=== PATIENT | male | born 1945 | race African-American/Black ===

== ENCOUNTER 2019-03-06 18:06 | Emergency (ER) | payer MEDICARE, MEDICAID ==
[~2019-03-06] VITALS: Ht 177.8 cm; Wt 82.0 kg
[2019-03-06] MEDS ORDERED: LIDOCAINE 1%/EPI 1:100,000 10 ML VIAL IJ ONE (21:15)
[2019-03-06] MEDS ORDERED: BACITRACIN ZINC OINT UDPKT TOP ONE (21:15)
[2019-03-06] MEDS ORDERED: LIDOCAINE HCL/EPINEPHRINE 1%-EPI 1:100,000 20 ML VIAL INFIL NR (21:15)
[2019-03-06 21:50] LABS: BASOPHILS % 0.4 % (0.0-2.0); EOSINOPHILS % 1.6 % (0.0-5.0); HEMATOCRIT. 33.5 % (42.0-52.0); HEMOGLOBIN. 11.4 g/dL (14.0-18.0); LYMPHOCYTES % 18.8 % (20.0-50.0); MEAN CORPUSCULAR HEMOGLOBIN 30.4 pg (28.0-32.0); MEAN CORPUSCULAR VOLUME 89.5 fL (80.0-94.0); MEAN PLATELET VOLUME 6.7 fl (7.4-10.4); MONOCYTES % 7.6 % (2.0-8.0); NEUTROPHILS % 71.6 % (40.0-76.0); PLATELET 156 x1000/uL (130-400); RED BLOOD CELL COUNT 3.75 mill/uL (4.7-6.1); RED CELL DISTRIBUTION WIDTH 15.6 % (11.6-14.6)
[2019-03-06 21:53] LABS: INR 1.1; PARTIAL THROMBOPLASTIN TIME 26.1 sec (23.4-31.0); PROTHROMBIN TIME 10.9 sec (9.6-11.0)
[2019-03-06 22:59] VITALS: BP 134/79
== END 2019-03-06 23:00 | disposition home or self-care (01) ==
LOC: ER 18:06
DX: L02.411 Cutaneous abscess of right axilla (principal); R58 Hemorrhage, not elsewhere classified
CPT/HCPCS: 36415; 80048; 85025; 85610; 85730; 99283; J3490

== ENCOUNTER 2019-08-05 17:57 | Emergency (ER) | payer MEDICARE, MEDICAID ==
[~2019-08-05] VITALS: Ht 170.2 cm; Wt 84.0 kg
[2019-08-05] MEDS ORDERED: ACETAMINOPHEN 325MG TABLET PO ONE (18:45)
[2019-08-05 18:51] LABS: BASOPHILS % 0.6 % (0.0-2.0); EOSINOPHILS % 2.5 % (0.0-5.0); HEMATOCRIT. 33.5 % (42.0-52.0); HEMOGLOBIN. 11.2 g/dL (14.0-18.0); LYMPHOCYTES % 20.5 % (20.0-50.0); MEAN CORPUSCULAR HEMOGLOBIN 29.9 pg (28.0-32.0); MEAN CORPUSCULAR VOLUME 89.1 fL (80.0-94.0); MEAN PLATELET VOLUME 6.5 fl (7.4-10.4); MONOCYTES % 7.6 % (2.0-8.0); NEUTROPHILS % 68.8 % (40.0-76.0); PLATELET 176 x1000/uL (130-400); RED BLOOD CELL COUNT 3.76 mill/uL (4.7-6.1); RED CELL DISTRIBUTION WIDTH 15.9 % (11.6-14.6)
[2019-08-05 18:58] LABS: CHLORIDE 108 mEq/L (98-107)
[2019-08-05 21:30] VITALS: BP 124/61
== END 2019-08-05 21:30 | disposition home or self-care (01) ==
LOC: ER 17:57
DX: R20.2 Paresthesia of skin (principal); I10 Essential (primary) hypertension; Z86.73 Personal history of transient ischemic attack (TIA), and cerebral infarction without residual deficits; Z98.890 Other specified postprocedural states; Z88.0 Allergy status to penicillin; Z88.1 Allergy status to other antibiotic agents; Z88.6 Allergy status to analgesic agent
CPT/HCPCS: 36415; 93005; 99284

== ENCOUNTER 2019-08-06 13:23 | Inpatient (IN) | payer MEDICARE, MEDICAID ==
[~2019-08-06] VITALS: Ht 177.8 cm; Wt 84.6 kg
[2019-08-06] MEDS ORDERED: SODIUM CHLORIDE 0.9% 1,000 ML IV ONE (14:57)
[2019-08-06 16:12] LABS: HEMATOCRIT. 34.6 % (42.0-52.0); HEMOGLOBIN. 11.5 g/dL (14.0-18.0); MEAN CORPUSCULAR HEMOGLOBIN 29.8 pg (28.0-32.0); MEAN CORPUSCULAR VOLUME 89.9 fL (80.0-94.0); MEAN PLATELET VOLUME 6.9 fl (7.4-10.4); PLATELET 174 x1000/uL (130-400); RED BLOOD CELL COUNT 3.85 mill/uL (4.7-6.1); RED CELL DISTRIBUTION WIDTH 15.7 % (11.6-14.6)
[2019-08-06 16:15] LABS: CHLORIDE 108 mEq/L (98-107)
[2019-08-06 16:21] LABS: INR 1.1; PROTHROMBIN TIME 10.8 sec (9.6-11.0)
[2019-08-06 16:33] LABS: PLATELET ESTIMATE NORMAL
[2019-08-06] MEDS ORDERED: ONDANSETRON HCL 4MG/2ML INJ IV PRN (17:45)
[2019-08-06] MEDS ORDERED: NA PHOS,M-B/NA PHOS,DI-BA ENEMA 118ML PR PRN (17:45)
[2019-08-06] MEDS ORDERED: MAGNESIUM/ALUMINUM HYDROXIDE/SIMETHICONE 30ML UDC PO PRN (17:45)
[2019-08-06] MEDS ORDERED: CLONIDINE 0.1MG TABLET PO PRN (17:45)
[2019-08-06] MEDS ORDERED: MORPHINE SULFATE 2 MG/ML CPJ (NOT FOR IM USE) IV PRN (17:45)
[2019-08-06] MEDS ORDERED: ACETAMINOPHEN 325MG TABLET PO PRN (17:45)
[2019-08-06] MEDS ORDERED: DEXTROSE 50% WATER 50ML SYRINGE IV PRN (17:45)
[2019-08-06] MEDS ORDERED: HYDRALAZINE 20MG/ML VIAL IV PRN (17:45)
[2019-08-06] MEDS ORDERED: GUAIFENESIN 200MG/10ML SUGAR FREE UDC PO PRN (17:45)
[2019-08-06] MEDS ORDERED: HYDROCODONE/ACETAMINOPHEN 5/325MG TABLET PO PRN (17:45)
[2019-08-06] MEDS ORDERED: IPRATROPIUM/ALBUTEROL 0.5-3(2.5)MG/3ML NEB HHN PRN (17:45)
[2019-08-06] MEDS ORDERED: DOCUSATE SODIUM 100MG CAPSULE PO PRN (17:45)
[2019-08-06] MEDS ORDERED: LORAZEPAM 2MG/ML CPJ IV PRN (17:45)
[2019-08-06] MEDS ORDERED: DIPHENHYDRAMINE 50MG/ML VIAL IV PRN (17:45)
[2019-08-06 19:36] LABS: CLARITY URINE CLEAR (CLEAR); COLOR URINE YELLOW (YELLOW); KETONES URINE NEGATIVE (NEGATIVE); LEUKOCYTE ESTERASE URINE NEGATIVE (NEGATIVE); NITRITE URINE NEGATIVE (NEGATIVE); OCCULT BLOOD URINE NEGATIVE (NEGATIVE); PROTEIN URINE NEGATIVE (NEGATIVE); SPECIFIC GRAVITY URINE 1.019 (1.005-1.030); UROBILINOGEN URINE 0.2 E.U./dL (0.2-1.0)
[2019-08-06 21:53] VITALS: BP 148/53
[2019-08-06] MEDS: SODIUM CHLORIDE 0.9% INJ 3ML FLUSH IVF SCH (22:53)
[2019-08-06] MEDS: SODIUM CHLORIDE 0.45% 1,000 ML IV SCH (22:55)
[2019-08-07] VITALS (10 sets, daily range): BP systolic 109–150; BP diastolic 51–75
[2019-08-07] MEDS: SODIUM CHLORIDE 0.9% INJ 3ML FLUSH IVF SCH ×3 (06:29→22:00)
[2019-08-07 07:07] LABS: CHLORIDE 111 mEq/L (98-107)
[2019-08-07 07:14] LABS: BASOPHILS % 0.8 % (0.0-2.0); EOSINOPHILS % 2.7 % (0.0-5.0); HEMATOCRIT. 29.7 % (42.0-52.0); HEMOGLOBIN. 10.1 g/dL (14.0-18.0); LYMPHOCYTES % 28.8 % (20.0-50.0); MEAN CORPUSCULAR VOLUME 88.7 fL (80.0-94.0); MEAN PLATELET VOLUME 7.1 fl (7.4-10.4); MONOCYTES % 9.8 % (2.0-8.0); NEUTROPHILS % 57.9 % (40.0-76.0); PLATELET 158 x1000/uL (130-400); RED BLOOD CELL COUNT 3.35 mill/uL (4.7-6.1)
[2019-08-07 07:30] LABS: T4 FREE 0.88 ng/dL (0.76-1.46)
[2019-08-07 07:31] LABS: CREATINE KINASE 496 IU/L (39-308)
[2019-08-07 07:34] LABS: HDL CHOLESTEROL 44 mg/dL (40-59); LDL CHOLESTEROL 111 mg/dL (5-100)
[2019-08-07 07:40] LABS: CREATINE KINASE MB FRACTION 3.4 ng/mL (0.5-3.6)
[2019-08-07] MEDS: ENOXAPARIN 40MG/0.4ML SYR SUBCUT SCH (09:28)
[2019-08-07] MEDS: SODIUM CHLORIDE 0.45% 1,000 ML IV SCH (13:24)
[2019-08-07] MEDS: CLOPIDOGREL 75MG TABLET PO SCH (15:05)
[2019-08-07 16:29] LABS: CREATINE KINASE 585 IU/L (39-308)
[2019-08-07 16:30] LABS: CREATINE KINASE MB FRACTION 4.2 ng/mL (0.5-3.6)
[2019-08-07] MEDS: ATORVASTATIN CALCIUM 40MG TABLET PO SCH ×2 (20:11→20:35)
[2019-08-08] VITALS (13 sets, daily range): BP systolic 121–160; BP diastolic 55–88
[2019-08-08] MEDS: SODIUM CHLORIDE 0.45% 1,000 ML IV SCH ×2 (04:46→23:49)
[2019-08-08] MEDS: SODIUM CHLORIDE 0.9% INJ 3ML FLUSH IVF SCH ×3 (05:30→21:35)
[2019-08-08] MEDS: ENOXAPARIN 40MG/0.4ML SYR SUBCUT SCH (08:49)
[2019-08-08] MEDS: CLOPIDOGREL 75MG TABLET PO SCH (08:49)
[2019-08-09] VITALS (10 sets, daily range): BP systolic 116–149; BP diastolic 55–79
[2019-08-09] MEDS: SODIUM CHLORIDE 0.9% INJ 3ML FLUSH IVF SCH ×2 (06:15→12:08)
[2019-08-09] MEDS: CLOPIDOGREL 75MG TABLET PO SCH (09:47)
[2019-08-09] MEDS: ENOXAPARIN 40MG/0.4ML SYR SUBCUT SCH (09:47)
[2019-08-09 11:40] LABS: CREATINE KINASE MB FRACTION 2.5 ng/mL (0.5-3.6)
== END 2019-08-09 17:32 | disposition home health service (06) | DRG 45 ==
LOC: ER 13:23 → 7WST 17:38 → EDBEDREQ 17:46 → ENRESERV 21:33 → 5EST 08-07 13:10
PROVIDERS: ADMIT Internal Medicine; ATTEND Internal Medicine
PROC: 4A00X4Z Measurement of Central Nervous Electrical Activity, External Approach (ICD-10-PCS; principal; 2019-08-08)
DX: I63.10 Cerebral infarction due to embolism of unspecified precerebral artery (principal); N17.9 Acute kidney failure, unspecified; M62.82 Rhabdomyolysis; G90.8 Other disorders of autonomic nervous system; E86.0 Dehydration; D64.9 Anemia, unspecified; N18.9 Chronic kidney disease, unspecified; E78.5 Hyperlipidemia, unspecified; Z88.1 Allergy status to other antibiotic agents; Z88.9 Allergy status to unspecified drugs, medicaments and biological substances; Z85.9 Personal history of malignant neoplasm, unspecified; Z85.53 Personal history of malignant neoplasm of renal pelvis; I25.10 Atherosclerotic heart disease of native coronary artery without angina pectoris; I12.9 Hypertensive chronic kidney disease with stage 1 through stage 4 chronic kidney disease, or unspecified chronic kidney disease; Z90.5 Acquired absence of kidney; Z88.0 Allergy status to penicillin; Z82.49 Family history of ischemic heart disease and other diseases of the circulatory system
CPT/HCPCS: 36415; 70551; 71045; 80061; 81003; 82550; 82553; 83605; 84439; 84443; 84484; 93005; 93306; 93880; 93970; 95816; 96360; 97116; 97162; 97166; 97535; 99285; J1650; J7030

== ENCOUNTER 2019-08-29 07:52 | Emergency (ER) | payer MEDICARE, MEDICAID ==
[~2019-08-29] VITALS: Ht 177.8 cm; Wt 82.0 kg
[2019-08-29] MEDS ORDERED: ACETAMINOPHEN 650MG/20.3ML UDC PO ONE (08:45)
[2019-08-29 09:19] LABS: BASOPHILS % 0.6 % (0.0-2.0); EOSINOPHILS % 2.2 % (0.0-5.0); HEMATOCRIT. 32.8 % (42.0-52.0); HEMOGLOBIN. 11.2 g/dL (14.0-18.0); LYMPHOCYTES % 20.9 % (20.0-50.0); MEAN CORPUSCULAR HEMOGLOBIN 30.3 pg (28.0-32.0); MEAN PLATELET VOLUME 6.6 fl (7.4-10.4); MONOCYTES % 7.3 % (2.0-8.0); PLATELET 181 x1000/uL (130-400); RED BLOOD CELL COUNT 3.68 mill/uL (4.7-6.1); RED CELL DISTRIBUTION WIDTH 15.6 % (11.6-14.6)
[2019-08-29 09:25] LABS: INR 1.1; PROTHROMBIN TIME 11.2 sec (9.6-11.0)
[2019-08-29 09:26] LABS: CHLORIDE 106 mEq/L (98-107)
[2019-08-29 10:07] LABS: CLARITY URINE CLEAR (CLEAR); COLOR URINE YELLOW (YELLOW); KETONES URINE NEGATIVE (NEGATIVE); LEUKOCYTE ESTERASE URINE TRACE (NEGATIVE); NITRITE URINE NEGATIVE (NEGATIVE); OCCULT BLOOD URINE NEGATIVE (NEGATIVE); PH URINE 6.5 (4.5-8.0); PROTEIN URINE NEGATIVE (NEGATIVE); SPECIFIC GRAVITY URINE 1.014 (1.005-1.030)
[2019-08-29 11:27] VITALS: BP 136/68
== END 2019-08-29 11:58 | disposition home or self-care (01) ==
LOC: ER 07:52
DX: R51 Headache (principal); I10 Essential (primary) hypertension; Z86.73 Personal history of transient ischemic attack (TIA), and cerebral infarction without residual deficits; Z88.0 Allergy status to penicillin; Z88.1 Allergy status to other antibiotic agents; Z88.6 Allergy status to analgesic agent
CPT/HCPCS: 36415; 81003; 93005; 99284

== ENCOUNTER 2019-09-20 10:28 | Emergency (ER) | payer MEDICARE, MEDICAID ==
[~2019-09-20] VITALS: Ht 177.8 cm; Wt 82.0 kg
[2019-09-20] MEDS ORDERED: ACETAMINOPHEN 325MG TABLET PO ONE (11:00)
[2019-09-20 12:51] VITALS: BP 144/72
== END 2019-09-20 13:18 | disposition home or self-care (01) ==
LOC: ER 10:58
DX: S01.112A Laceration without foreign body of left eyelid and periocular area, initial encounter (principal); M25.552 Pain in left hip; M25.562 Pain in left knee; R03.0 Elevated blood-pressure reading, without diagnosis of hypertension; V43.52XA Car driver injured in collision with other type car in traffic accident, initial encounter; Y93.89 Activity, other specified; Y92.410 Unspecified street and highway as the place of occurrence of the external cause
CPT/HCPCS: 73502; 73560; 99284

== ENCOUNTER 2021-08-06 10:47 | Emergency (ER) | payer MEDICARE, MEDICAID ==
[~2021-08-06] VITALS: Ht 177.8 cm; Wt 84.0 kg
[~2021-08-06 10:47] MED LIST: DOXA2TAB PO; HYDR12.54 PO; LOSA100T3 PO
[2021-08-06 12:17] VITALS: BP 143/78
[2021-08-06] MEDS ORDERED: ACETAMINOPHEN 325MG TABLET PO STA (14:19)
[2021-08-06] MEDS ORDERED: TOPUD PO (15:59)
== END 2021-08-06 16:15 | disposition home or self-care (01) ==
LOC: ER 10:59
DX: S00.83XA Contusion of other part of head, initial encounter (principal); S81.011A Laceration without foreign body, right knee, initial encounter; R10.9 Unspecified abdominal pain; W01.0XXA Fall on same level from slipping, tripping and stumbling without subsequent striking against object, initial encounter; Y93.89 Activity, other specified; Y92.89 Other specified places as the place of occurrence of the external cause; I10 Essential (primary) hypertension; Z88.1 Allergy status to other antibiotic agents; Z88.6 Allergy status to analgesic agent
CPT/HCPCS: 73562; 99284

== ENCOUNTER 2021-09-15 10:29 | Inpatient (IN) | payer MEDICARE, MEDICAID ==
[~2021-09-15] VITALS: Ht 177.8 cm; Wt 81.6 kg
[~2021-09-15 10:29] MED LIST changes: +TOPUD PO
[2021-09-15 11:24] LABS: BASOPHILS % 0.6 % (0.0-2.0); EOSINOPHILS % 4.2 % (0.0-5.0); HEMATOCRIT. 36.5 % (42.0-52.0); HEMOGLOBIN. 11.9 g/dL (14.0-18.0); LYMPHOCYTES % 20.3 % (20.0-50.0); MEAN CORPUSCULAR HEMOGLOBIN 30.4 pg (28.0-32.0); MEAN CORPUSCULAR VOLUME 93.3 fL (80.0-94.0); MEAN PLATELET VOLUME 6.8 fl (7.4-10.4); MONOCYTES % 12.2 % (2.0-8.0); NEUTROPHILS % 62.7 % (40.0-76.0); PLATELET 176 x1000/uL (130-400); RED BLOOD CELL COUNT 3.91 mill/uL (4.7-6.1); RED CELL DISTRIBUTION WIDTH 16.4 % (11.6-14.6)
[2021-09-15 11:31] LABS: CHLORIDE 107 mEq/L (98-107)
[2021-09-15] MEDS ORDERED: ASPI-986 MT (15:27)
[2021-09-15] MEDS ORDERED: POTA-189 MT (15:27)
[2021-09-15] MEDS ORDERED: FOLI0.8T23 MT (15:27)
[2021-09-15] MEDS ORDERED: LOSA100T3 MT (15:27)
[2021-09-15 16:26] VITALS: BP 155/76
[2021-09-15] MEDS ORDERED: MORPHINE SULFATE 2 MG/ML CPJ (NOT FOR IM USE) IV PRN (17:00)
[2021-09-15] MEDS ORDERED: NALOXONE HCL 0.4MG/ML VIAL IV PRN (17:00)
[2021-09-15] MEDS ORDERED: IPRATROPIUM/ALBUTEROL 0.5-3(2.5)MG/3ML NEB HHN PRN (17:45)
[2021-09-15] MEDS ORDERED: HYDROCODONE/ACETAMINOPHEN 5/325MG TABLET PO PRN (17:45)
[2021-09-15] MEDS ORDERED: CLONIDINE 0.1MG TABLET PO PRN (17:45)
[2021-09-15] MEDS ORDERED: ONDANSETRON HCL 4MG/2ML INJ IV PRN (17:45)
[2021-09-15] MEDS ORDERED: HYDRALAZINE 20MG/ML VIAL IV PRN (17:45)
[2021-09-15] MEDS ORDERED: MAGNESIUM/ALUMINUM HYDROXIDE/SIMETHICONE 30ML UDC PO PRN (17:45)
[2021-09-15] MEDS ORDERED: GUAIFENESIN 200MG/10ML SUGAR FREE UDC PO PRN (17:45)
[2021-09-15] MEDS ORDERED: ACETAMINOPHEN 325MG TABLET PO PRN (17:45)
[2021-09-15] MEDS ORDERED: DIPHENHYDRAMINE 50MG/ML VIAL IV PRN (17:45)
[2021-09-15] MEDS ORDERED: LORAZEPAM 2MG/ML CPJ IV PRN (17:45)
[2021-09-15] MEDS ORDERED: DOCUSATE SODIUM 100MG CAPSULE PO PRN (17:45)
[2021-09-15] MEDS: ENOXAPARIN 40MG/0.4ML SYR SUBCUT SCH (19:01)
[2021-09-15 20:00] VITALS: BP 135/73
[2021-09-15] MEDS: SODIUM CHLORIDE 0.9% INJ 3ML FLUSH IVF SCH (21:16)
[2021-09-15 22:54] LABS: CLARITY URINE CLEAR (CLEAR); COLOR URINE YELLOW (YELLOW); KETONES URINE NEGATIVE (NEGATIVE); LEUKOCYTE ESTERASE URINE TRACE (NEGATIVE); NITRITE URINE NEGATIVE (NEGATIVE); OCCULT BLOOD URINE NEGATIVE (NEGATIVE); PROTEIN URINE NEGATIVE (NEGATIVE); SPECIFIC GRAVITY URINE 1.012 (1.005-1.030)
[2021-09-16] VITALS: BP 127/67
[2021-09-16] LABS: CREATINE KINASE 369 IU/L (39-308)
[2021-09-16 00:05] LABS: CREATINE KINASE MB FRACTION 3.3 ng/mL (0.5-3.6)
[2021-09-16 04:00] VITALS: BP 126/66
[2021-09-16] MEDS: SODIUM CHLORIDE 0.9% INJ 3ML FLUSH IVF SCH ×3 (05:00→21:12)
[2021-09-16 08:00] VITALS: BP 110/63
[2021-09-16 08:41] LABS: BASOPHILS % 0.8 % (0.0-2.0); EOSINOPHILS % 4.6 % (0.0-5.0); HEMATOCRIT. 35.4 % (42.0-52.0); HEMOGLOBIN. 11.7 g/dL (14.0-18.0); LYMPHOCYTES % 23.6 % (20.0-50.0); MEAN CORPUSCULAR HEMOGLOBIN 30.3 pg (28.0-32.0); MEAN CORPUSCULAR VOLUME 91.6 fL (80.0-94.0); MEAN PLATELET VOLUME 7.1 fl (7.4-10.4); PLATELET 175 x1000/uL (130-400); RED BLOOD CELL COUNT 3.86 mill/uL (4.7-6.1); RED CELL DISTRIBUTION WIDTH 15.8 % (11.6-14.6)
[2021-09-16 08:55] LABS: CHLORIDE 108 mEq/L (98-107)
[2021-09-16 09:01] LABS: CREATINE KINASE 375 IU/L (39-308)
[2021-09-16 09:03] LABS: CREATINE KINASE MB FRACTION 3.3 ng/mL (0.5-3.6)
[2021-09-16 11:50] VITALS: BP 113/65
[2021-09-16 16:00] VITALS: BP 128/86
[2021-09-16] MEDS: ENOXAPARIN 40MG/0.4ML SYR SUBCUT SCH (17:30)
[2021-09-16 20:00] VITALS: BP 123/64
[2021-09-17] VITALS: BP 128/62
[2021-09-17 04:00] VITALS: BP 131/62
[2021-09-17] MEDS: SODIUM CHLORIDE 0.9% INJ 3ML FLUSH IVF SCH ×2 (06:09→14:04)
[2021-09-17 07:57] VITALS: BP 145/67
[2021-09-17 12:00] VITALS: BP 108/56
[2021-09-17 13:46] VITALS: BP 108/45
== END 2021-09-17 15:25 | disposition home health service (06) | DRG 203 ==
LOC: ER 10:29 → 7EST 13:08 → EDBEDREQTM 13:12 → EDBEDREQ 13:12 → ENRESERV 13:48
PROVIDERS: ADMIT Internal Medicine; ATTEND Internal Medicine
DX: M94.0 Chondrocostal junction syndrome [Tietze] (principal); D63.8 Anemia in other chronic diseases classified elsewhere; E78.00 Pure hypercholesterolemia, unspecified; I12.9 Hypertensive chronic kidney disease with stage 1 through stage 4 chronic kidney disease, or unspecified chronic kidney disease; E78.5 Hyperlipidemia, unspecified; N18.9 Chronic kidney disease, unspecified; Z85.528 Personal history of other malignant neoplasm of kidney; Z86.73 Personal history of transient ischemic attack (TIA), and cerebral infarction without residual deficits; Z87.891 Personal history of nicotine dependence; Z90.5 Acquired absence of kidney; Z88.6 Allergy status to analgesic agent; Z88.1 Allergy status to other antibiotic agents; Z88.8 Allergy status to other drugs, medicaments and biological substances; Z79.1 Long term (current) use of non-steroidal anti-inflammatories (NSAID); Z79.82 Long term (current) use of aspirin; Z79.899 Other long term (current) drug therapy
CPT/HCPCS: 36415; 71045; 80053; 81003; 82550; 82553; 83880; 84443; 84484; 85025; 93005; 99285; J1650

== ENCOUNTER 2022-01-05 17:04 | Inpatient (IN) | payer MEDICARE, MEDICAID ==
[~2022-01-05] VITALS: Ht 177.8 cm; Wt 82.6 kg
[~2022-01-05 17:04] MED LIST changes: +ASPI-986 MT; +FOLI0.8T23 MT; +LOSA100T3 MT; +POTA-189 MT
[2022-01-05 19:55] LABS: BASOPHILS % 0.4 % (0.0-2.0); EOSINOPHILS % 3.4 % (0.0-5.0); HEMATOCRIT. 33.6 % (42.0-52.0); HEMOGLOBIN. 11.3 g/dL (14.0-18.0); LYMPHOCYTES % 13.3 % (20.0-50.0); MEAN CORPUSCULAR HEMOGLOBIN 30.5 pg (28.0-32.0); MEAN CORPUSCULAR VOLUME 90.4 fL (80.0-94.0); MEAN PLATELET VOLUME 6.6 fl (7.4-10.4); MONOCYTES % 10.5 % (2.0-8.0); NEUTROPHILS % 72.4 % (40.0-76.0); PLATELET 197 x1000/uL (130-400); RED BLOOD CELL COUNT 3.72 mill/uL (4.7-6.1); RED CELL DISTRIBUTION WIDTH 15.8 % (11.6-14.6)
[2022-01-05 20:02] LABS: CHLORIDE 106 mEq/L (98-107)
[2022-01-05] MEDS ORDERED: AZITHROMYCIN 500MG/250ML 250 ML IV ONE (20:30)
[2022-01-06 01:58] VITALS: BP 156/76
[2022-01-06] MEDS ORDERED: ACETAMINOPHEN 325MG TABLET PO PRN (03:00)
[2022-01-06] MEDS ORDERED: CLONIDINE 0.1MG TABLET PO PRN (03:00)
[2022-01-06 04:00] VITALS: BP 143/71
[2022-01-06] MEDS: CEFTRIAXONE 1,000 MG in DEXTROSE 5% WATER 50 ML IV SCH (04:42)
[2022-01-06 08:00] VITALS: BP 141/71
[2022-01-06] MEDS: ENOXAPARIN 40MG/0.4ML SYR SUBCUT SCH (09:27)
[2022-01-06] MEDS: AZITHROMYCIN 250 MG TABLET PO SCH (09:27)
[2022-01-06] MEDS: LOSARTAN POTASSIUM 100 MG TABLET PO SCH (09:27)
[2022-01-06] MEDS: ASPIRIN 81MG TABLET PO SCH ×2 (09:27→17:01)
[2022-01-06] MEDS ORDERED: IPRATROPIUM/ALBUTEROL 0.5-3(2.5)MG/3ML NEB HHN PRN (13:30)
[2022-01-06 16:00] VITALS: BP 121/94
[2022-01-06 16:45] LABS: CLARITY URINE CLEAR (CLEAR); COLOR URINE YELLOW (YELLOW); KETONES URINE NEGATIVE (NEGATIVE); LEUKOCYTE ESTERASE URINE NEGATIVE (NEGATIVE); NITRITE URINE NEGATIVE (NEGATIVE); OCCULT BLOOD URINE NEGATIVE (NEGATIVE); PROTEIN URINE NEGATIVE (NEGATIVE); SPECIFIC GRAVITY URINE 1.014 (1.005-1.030)
[2022-01-06 17:04] LABS: *AMPHETAMINES SCREEN URINE NEGATIVE (NEGATIVE); *BARBITURATES SCREEN URINE NEGATIVE (NEGATIVE); CANNABINOID URINE SCREEN NEGATIVE (NEGATIVE); METHADONE URINE SCREEN NEGATIVE (NEGATIVE); OPIATES URINE SCREEN PRESUMTIVE POSITIVE (NEGATIVE); PHENCYCLIDINE URINE SCREEN NEGATIVE (NEGATIVE)
[2022-01-06 17:05] LABS: *BENZODIAZEPINES SCREEN URINE NEGATIVE (NEGATIVE); *COCAINE SCREEN URINE NEGATIVE (NEGATIVE)
[2022-01-06 20:00] VITALS: BP 115/64
[2022-01-07] VITALS: BP 131/69
[2022-01-07] MEDS: CEFTRIAXONE 1,000 MG in DEXTROSE 5% WATER 50 ML IV SCH (03:57)
[2022-01-07 04:00] VITALS: BP 143/77
[2022-01-07 08:00] VITALS: BP 110/59
[2022-01-07] MEDS: AZITHROMYCIN 250 MG TABLET PO SCH (08:45)
[2022-01-07] MEDS: ASPIRIN 81MG TABLET PO SCH (08:46)
[2022-01-07] MEDS: LOSARTAN POTASSIUM 100 MG TABLET PO SCH (08:46)
[2022-01-07] MEDS: ENOXAPARIN 40MG/0.4ML SYR SUBCUT SCH (08:46)
[2022-01-07] MEDS ORDERED: LEVO250T58 MT (11:05)
[2022-01-07 11:41] VITALS: BP 141/81
[2022-01-07 11:46] VITALS: BP 141/81
== END 2022-01-07 15:05 | disposition home or self-care (01) | DRG 139 ==
LOC: ER 17:04 → 5WST 22:54 → ENRESERV 23:45
PROVIDERS: ADMIT Internal Medicine; ATTEND Internal Medicine
DX: J18.9 Pneumonia, unspecified organism (principal); N17.9 Acute kidney failure, unspecified; M94.0 Chondrocostal junction syndrome [Tietze]; E78.5 Hyperlipidemia, unspecified; I12.9 Hypertensive chronic kidney disease with stage 1 through stage 4 chronic kidney disease, or unspecified chronic kidney disease; D64.9 Anemia, unspecified; N18.9 Chronic kidney disease, unspecified; Z20.822 Contact with and (suspected) exposure to COVID-19; Z88.1 Allergy status to other antibiotic agents; Z88.8 Allergy status to other drugs, medicaments and biological substances; Z90.5 Acquired absence of kidney; Z85.528 Personal history of other malignant neoplasm of kidney; Z86.73 Personal history of transient ischemic attack (TIA), and cerebral infarction without residual deficits
CPT/HCPCS: 36415; 71045; 76770; 80053; 80305; 81003; 83880; 84484; 85025; 87426; 93005; 97162; 99285; J0456; J0696; J1650; J7060

== ENCOUNTER 2022-02-04 17:42 | Emergency (ER) | payer MEDICARE, MEDICAID ==
[~2022-02-04] VITALS: Ht 177.8 cm; Wt 84.0 kg
[~2022-02-04 17:42] MED LIST changes: +LEVO250T58 MT
[2022-02-04 18:02] VITALS: BP 140/72
[2022-02-04] MEDS ORDERED: GABA-529 MT (19:51)
== END 2022-02-04 20:21 | disposition home or self-care (01) ==
LOC: ER 17:54
DX: K62.89 Other specified diseases of anus and rectum (principal); I10 Essential (primary) hypertension; Z85.9 Personal history of malignant neoplasm, unspecified; Z98.890 Other specified postprocedural states
CPT/HCPCS: 99283

== ENCOUNTER 2022-02-15 20:32 | Emergency (ER) | payer MEDICARE, MEDICAID ==
[~2022-02-15] VITALS: Ht 177.8 cm; Wt 83.0 kg
[~2022-02-15 20:32] MED LIST changes: +GABA-529 MT
[2022-02-15 21:14] VITALS: BP 137/73
[2022-02-15] MEDS ORDERED: SODIUM CHLORIDE 0.9% 1,000 ML IV ONE (23:30)
[2022-02-15] MEDS ORDERED: ACETAMINOPHEN 325MG TABLET PO ONE (23:30)
[2022-02-15 23:51] LABS: HEMATOCRIT. 35.3 % (42.0-52.0); HEMOGLOBIN. 11.8 g/dL (14.0-18.0); MEAN CORPUSCULAR HEMOGLOBIN 30.3 pg (28.0-32.0); MEAN CORPUSCULAR VOLUME 90.9 fL (80.0-94.0); MEAN PLATELET VOLUME 6.7 fl (7.4-10.4); PLATELET 165 x1000/uL (130-400); RED BLOOD CELL COUNT 3.88 mill/uL (4.7-6.1); RED CELL DISTRIBUTION WIDTH 16.8 % (11.6-14.6)
[2022-02-16 00:03] LABS: CHLORIDE 106 mEq/L (98-107)
[2022-02-16 00:12] LABS: CLARITY URINE CLEAR (CLEAR); COLOR URINE YELLOW (YELLOW); KETONES URINE TRACE (NEGATIVE); LEUKOCYTE ESTERASE URINE NEGATIVE (NEGATIVE); NITRITE URINE NEGATIVE (NEGATIVE); OCCULT BLOOD URINE NEGATIVE (NEGATIVE); PH URINE 5.5 (4.5-8.0); PROTEIN URINE NEGATIVE (NEGATIVE); SPECIFIC GRAVITY URINE 1.006 (1.005-1.030); UROBILINOGEN URINE 0.2 E.U./dL (0.2-1.0)
[2022-02-16] MEDS ORDERED: METR500T MT (04:14)
[2022-02-16 04:36] LABS: ATYPICAL LYMPHOCYTES 1
[2022-02-16 04:37] LABS: PLATELET ESTIMATE NORMAL
== END 2022-02-16 04:38 | disposition home or self-care (01) ==
LOC: ER 20:32
DX: K65.4 Sclerosing mesenteritis (principal); R07.89 Other chest pain; R51.9 Headache, unspecified; Z20.822 Contact with and (suspected) exposure to COVID-19; I10 Essential (primary) hypertension; Z85.528 Personal history of other malignant neoplasm of kidney; Z98.890 Other specified postprocedural states; Z86.73 Personal history of transient ischemic attack (TIA), and cerebral infarction without residual deficits
CPT/HCPCS: 36415; 71045; 74176; 80053; 81003; 83605; 83690; 85025; 87426; 93005; 96360; 99285; J7030

== ENCOUNTER 2022-02-18 07:07 | Emergency (ER) | payer MEDICARE, MEDICAID ==
[~2022-02-18] VITALS: Ht 177.8 cm; Wt 84.0 kg
[~2022-02-18 07:07] MED LIST changes: +METR500T MT
[2022-02-18 07:58] VITALS: BP 126/68
[2022-02-18 08:13] LABS: BASOPHILS % 0.6 % (0.0-2.0); EOSINOPHILS % 3.3 % (0.0-5.0); HEMATOCRIT. 36.7 % (42.0-52.0); HEMOGLOBIN. 12.4 g/dL (14.0-18.0); LYMPHOCYTES % 20.9 % (20.0-50.0); MEAN CORPUSCULAR HEMOGLOBIN 30.3 pg (28.0-32.0); MEAN CORPUSCULAR VOLUME 89.5 fL (80.0-94.0); MEAN PLATELET VOLUME 6.5 fl (7.4-10.4); MONOCYTES % 9.2 % (2.0-8.0); PLATELET 188 x1000/uL (130-400); RED BLOOD CELL COUNT 4.11 mill/uL (4.7-6.1); RED CELL DISTRIBUTION WIDTH 16.2 % (11.6-14.6)
[2022-02-18 08:14] LABS: CLARITY URINE CLEAR (CLEAR); COLOR URINE YELLOW (YELLOW); KETONES URINE TRACE (NEGATIVE); LEUKOCYTE ESTERASE URINE NEGATIVE (NEGATIVE); NITRITE URINE NEGATIVE (NEGATIVE); OCCULT BLOOD URINE NEGATIVE (NEGATIVE); PROTEIN URINE NEGATIVE (NEGATIVE); SPECIFIC GRAVITY URINE 1.013 (1.005-1.030)
[2022-02-18 08:23] LABS: CHLORIDE 107 mEq/L (98-107)
[2022-02-18] MEDS ORDERED: IOHEXOL-300 100 ML BOTTLE ONE (08:39)
== END 2022-02-18 11:13 | disposition home or self-care (01) ==
LOC: ER 07:07
DX: I88.0 Nonspecific mesenteric lymphadenitis (principal); I10 Essential (primary) hypertension; I45.10 Unspecified right bundle-branch block; J45.909 Unspecified asthma, uncomplicated; Z86.73 Personal history of transient ischemic attack (TIA), and cerebral infarction without residual deficits; Z85.528 Personal history of other malignant neoplasm of kidney; Z90.5 Acquired absence of kidney; I25.2 Old myocardial infarction; Z88.0 Allergy status to penicillin; Z88.1 Allergy status to other antibiotic agents; Z88.3 Allergy status to other anti-infective agents; Z79.899 Other long term (current) drug therapy
CPT/HCPCS: 36415; 70450; 74176; 80053; 81003; 83605; 83690; 85025; 93005; 99285; Q9967

== ENCOUNTER 2022-06-03 16:37 | Emergency (ER) | payer MEDICARE, MEDICAID ==
[~2022-06-03] VITALS: Ht 177.8 cm; Wt 84.0 kg
[~2022-06-03 16:37] MED LIST changes: +LEVO250T43 MT; -LEVO250T58 MT
[2022-06-03 17:04] VITALS: BP 111/68
[2022-06-03 17:47] LABS: BASOPHILS % 0.4 % (0.0-2.0); EOSINOPHILS % 1.9 % (0.0-5.0); HEMATOCRIT. 33.4 % (42.0-52.0); LYMPHOCYTES % 9.8 % (20.0-50.0); MEAN CORPUSCULAR HEMOGLOBIN 30.7 pg (28.0-32.0); MEAN CORPUSCULAR VOLUME 93.1 fL (80.0-94.0); MEAN PLATELET VOLUME 8.1 fl (7.4-10.4); MONOCYTES % 13.1 % (2.0-8.0); NEUTROPHILS % 74.8 % (40.0-76.0); PLATELET 214 x1000/uL (130-400); RED BLOOD CELL COUNT 3.59 mill/uL (4.7-6.1); RED CELL DISTRIBUTION WIDTH 16.4 % (11.6-14.6)
[2022-06-03 17:58] LABS: CHLORIDE 107 mEq/L (98-107)
== END 2022-06-03 20:01 | disposition home or self-care (01) ==
LOC: ER 16:37
DX: U07.1 COVID-19 (principal); I12.9 Hypertensive chronic kidney disease with stage 1 through stage 4 chronic kidney disease, or unspecified chronic kidney disease; N18.9 Chronic kidney disease, unspecified; R79.89 Other specified abnormal findings of blood chemistry; Z86.73 Personal history of transient ischemic attack (TIA), and cerebral infarction without residual deficits; Z88.0 Allergy status to penicillin; Z88.1 Allergy status to other antibiotic agents; Z88.6 Allergy status to analgesic agent; Z90.5 Acquired absence of kidney; Z79.899 Other long term (current) drug therapy; Z79.82 Long term (current) use of aspirin; Z85.9 Personal history of malignant neoplasm, unspecified; Z98.890 Other specified postprocedural states
CPT/HCPCS: 36415; 71045; 80053; 83880; 84484; 85025; 87426; 93005; 99285; C9803

== ENCOUNTER 2022-06-18 15:34 | Emergency (ER) | payer MEDICARE, MEDICAID ==
[~2022-06-18] VITALS: Ht 177.8 cm; Wt 75.0 kg
[2022-06-18] MEDS ORDERED: SODIUM CHLORIDE 0.9% 500 ML IV ONE (16:45)
[2022-06-18 17:24] LABS: BASOPHILS % 0.4 % (0.0-2.0); EOSINOPHILS % 1.9 % (0.0-5.0); HEMATOCRIT. 36.2 % (42.0-52.0); HEMOGLOBIN. 11.9 g/dL (14.0-18.0); MEAN CORPUSCULAR HEMOGLOBIN 30.6 pg (28.0-32.0); MEAN CORPUSCULAR VOLUME 93.1 fL (80.0-94.0); MEAN PLATELET VOLUME 6.8 fl (7.4-10.4); MONOCYTES % 8.6 % (2.0-8.0); NEUTROPHILS % 73.1 % (40.0-76.0); PLATELET 217 x1000/uL (130-400); RED BLOOD CELL COUNT 3.88 mill/uL (4.7-6.1); RED CELL DISTRIBUTION WIDTH 16.3 % (11.6-14.6)
[2022-06-18 17:26] LABS: CLARITY URINE CLEAR (CLEAR); COLOR URINE DARK YELLOW (YELLOW); KETONES URINE 1+ (NEGATIVE); LEUKOCYTE ESTERASE URINE 1+ (NEGATIVE); NITRITE URINE NEGATIVE (NEGATIVE); OCCULT BLOOD URINE NEGATIVE (NEGATIVE); PH URINE 5.5 (4.5-8.0); PROTEIN URINE TRACE (NEGATIVE); SPECIFIC GRAVITY URINE 1.024 (1.005-1.030)
[2022-06-18 17:32] LABS: INR 1.1; PROTHROMBIN TIME 11.3 sec (9.6-11.0)
[2022-06-18 17:34] LABS: CHLORIDE 109 mEq/L (98-107)
[2022-06-18 17:37] LABS: *AMPHETAMINES SCREEN URINE NEGATIVE (NEGATIVE); *BARBITURATES SCREEN URINE NEGATIVE (NEGATIVE); *BENZODIAZEPINES SCREEN URINE NEGATIVE (NEGATIVE); *COCAINE SCREEN URINE NEGATIVE (NEGATIVE); CANNABINOID URINE SCREEN NEGATIVE (NEGATIVE); METHADONE URINE SCREEN NEGATIVE (NEGATIVE); OPIATES URINE SCREEN PRESUMTIVE POSITIVE (NEGATIVE); PHENCYCLIDINE URINE SCREEN NEGATIVE (NEGATIVE)
[2022-06-18 17:44] LABS: ETHANOL BLOOD < 10 mg/dL
[2022-06-18] MEDS ORDERED: SODIUM CHLORIDE 0.9% 1,000 ML IV ONE (18:15)
[2022-06-18] MEDS ORDERED: CEFTRIAXONE 1 G PREMIX 50 ML IV ONE (18:15)
[2022-06-18] MEDS ORDERED: CEFP200T13 MT (19:01)
[2022-06-18 19:26] VITALS: BP 120/65
== END 2022-06-18 19:27 | disposition home or self-care (01) ==
LOC: ER 15:34
DX: N39.0 Urinary tract infection, site not specified (principal); E86.0 Dehydration; E78.00 Pure hypercholesterolemia, unspecified; I10 Essential (primary) hypertension; Z86.73 Personal history of transient ischemic attack (TIA), and cerebral infarction without residual deficits; Z98.890 Other specified postprocedural states; Z85.6 Personal history of leukemia; Z79.899 Other long term (current) drug therapy
CPT/HCPCS: 36415; 71045; 80048; 80053; 80305; 80320; 81003; 83690; 83880; 84484; 85025; 85610; 93005; 96374; 99285; J0696; J7030; J7040; Z7610; G0480